=== PATIENT | male | born 1955 | race Caucasian/White ===

== ENCOUNTER 2017-05-25 11:04 | Outpatient (CLI) | payer OTHER ==
[2017-05-25 11:29] LABS: Hemoglobin 12.2 g/dL (14.0-18.0); Mean Corpuscular HGB CONC 33.8 g/dL (32.0-36.0); Mean Corpuscular Hemoglobin 30.6 pg (27.0-31.0); Mean Corpuscular Volume 90.6 fl (80.0-94.0); Mean Platelet Volume 4.7 fL (7.4-10.4); Platelet Count 444 thou/uL (130-400); RBC Distribution Width 13.9 % (11.5-14.5); Red Blood Cell (RBC) Count 3.97 mill/uL (4.70-6.10); White Blood Cell (WBC) Count 15.6 thou/uL (4.8-10.8)
[2017-05-25 17:08] LABS: Iron Binding Capacity, Total 255 mcg/dL (261-462)
[2017-05-25 17:09] LABS: Iron 58 ug/dL (65-175)
== END 2017-05-25 11:05 | disposition home or self-care (01) ==
LOC: MADLAB 11:04
DX: D50.9 Iron deficiency anemia, unspecified (principal)
CPT/HCPCS: 36415; 82728; 83540; 83550; 85027

== ENCOUNTER 2020-03-28 22:49 | Emergency (ER) | payer OTHER ==
[~2020-03-28 22:49] MED LIST: Iopamidol 370 76% 125 ML VIAL FS ONE; Sodium Chloride 0.9% 100 ML BAG ONE
[2020-03-28] MEDS ORDERED: Ondansetron PF 4 MG/2 ML Vial ONE (23:25)
[2020-03-28] MEDS ORDERED: Sodium Chloride 0.9% 1,000 ML ONE (23:25)
[2020-03-28] MEDS ORDERED: Morphine 4 MG/ML VIAL ONE (23:25)
[2020-03-28 23:28] LABS: #Basophils 0.1 thou/uL (0.0-0.2); #Eosinphils 0.8 thou/uL (0.0-0.7); #Lymphocytes 2.5 thou/uL (1.20-3.40); #Monocytes 1.6 thou/uL (0.11-0.59); #Neutrophils 14.8 thou/uL (1.40-6.50); %Basophils 0.6 % (0.0-1.0); %Eosinophils 4.1 % (0.0-10.0); %Lymphocytes 12.5 % (21.0-51.0); %Monocytes 7.9 % (0.0-10.0); Hemoglobin 14.6 g/dL (14.0-18.0); Mean Corpuscular HGB CONC 32.3 g/dL (32.0-36.0); Mean Corpuscular Hemoglobin 28.8 pg (27.0-31.0); Mean Platelet Volume 5.6 fL (7.4-10.4); Platelet Count 486 thou/uL (130-400); RBC Distribution Width 11.5 % (11.5-14.5); Red Blood Cell (RBC) Count 5.07 mill/uL (4.70-6.10); White Blood Cell (WBC) Count 19.7 thou/uL (4.8-10.8)
[2020-03-28 23:42] LABS: ALT (SGPT) 26 U/L (8-55); AST (SGOT) 21 U/L (5-34); Albumin 4.3 g/dL (3.4-4.8); Alkaline Phosphatase 90 U/L (40-110); Anion Gap 19 mmol/L (10-20); BUN (Urea Nitrogen) 23 mg/dL (8.4-25.7); Bilirubin, Total 0.3 mg/dL (0.2-1.2); CK (CPK) 54 U/L (30-200); Calc. Creatinine Clearance 0 mL/min (70-130); Carbon Dioxide 21 mmol/L (23-31); Chloride 99 mmol/L (98-107); Estimated GFR-MDRD 51; Globulin 4.8 g/dL (2.4-3.5); Glucose 163 mg/dL (80-115); Lipase 68 U/L (8-78); Potassium 3.4 mmol/L (3.5-5.1); Protein, Total 9.1 g/dL (5.8-8.1); Sodium 136 mmol/L (136-145)
[2020-03-29] MEDS ORDERED: Cefepime 2 GM VIAL ONE (00:17)
[2020-03-29] MEDS ORDERED: Sodium Chloride 0.9% 100 ML ONE (00:17)
[2020-03-29] MEDS ORDERED: Morphine 4 MG/ML VIAL ONE ×2 (00:30→02:09)
[2020-03-29] MEDS ORDERED: Vancomycin 1.5 GRAM/300 ML BAG 1.5 GM/300 ML BAG ONE (01:34)
[2020-03-29 02:45] LABS: Lactic Acid 1.7 mmol/L (0.5-2.2)
--- NOTE | 2020-03-29 09:30 | CT ---
PRELIMINARY REPORT/[facility]/EMERGENCY AFTER HOURS PROCEDURE Receipt of this report by the clinical staff was confirmed with Nakia Huynh RN by Ale Foster on March 29, 2020 00:41:00 CDT. Addendum electronically signed by Cecilia Foster on March 29, 2020 12:42:18 AM CDT CTA CHEST, ABDOMEN WITH CONTRAST History: ACUTE MID BACK/MID ABDOMEN PAIN. CONTRAST LEAKED Comparison: None Findings: Contrast bolus enters from the left with superior collateral vessels noted. Minimal contra st in the subclavian and axillary vein. Correlate for soft tissue contrast extravasation at injectio n site. Evaluation for pulmonary embolism is limited secondary to suboptimal pulmonary arterial bolus timing and respiratory motion artifact. No definite central pulmonary embolism is identified. Cardiac size is mildly enlarged. No pericardial effusion. Thoracic aorta is normal in caliber. Atherosclerotic c hanges of the aorta and coronary arteries. No acute aortic abnormality identified. Large vessel ladonna gins are unremarkable. Mild wall prominence of the esophagus. Correlate for esophagitis. No evidence of lymphadenopathy in the chest. Low lung volumes. Dependent atelectasis in the lower lo bes and lung bases as well as lingula. Few scattered groundglass opacities are seen in the right low er lobe which may reflect atelectasis. Infiltrate not excluded. No pleural effusion or pneumothorax identified. Abdominal aorta is normal in caliber. Atherosclerotic changes are present throughout. No acute vascular abnormality in the abdomen or pelvis. The celiac, SMA, NEHA, and renal veins are well -opacified. Visualized portions of the iliac vessels are unremarkable. Circumaortic left renal vein. Gallbladder is distended. Gallstones are seen at the base of the gallbladder and there is pericholec ystic fat stranding. Findings are concerning for acute cholecystitis. Consider ultrasound. No bilia ry ductal dilatation. There is mild hepatic steatosis. The spleen, pancreas and adrenal glands are unremarkable. Tiny subcentimeter hypodensities in the kidneys are too small to characterize. No hydr onephrosis bilaterally. Mild hazy appearance of the central mesentery with scattered subcentimeter me senteric lymph nodes. There is fluid in the distal small bowel which is nonspecific. The appendix is normal in caliber and noninflammatory. Diverticulosis. No evidence of acute diverticulitis. There i s wall thickening of the sigmoid colon in the left lower quadrant. Visualized portions of the upper pelvis. Mild wall thickening of the descending colon. Correlate for colitis. Osteopenia with degenerative changes throughout. There is trace anterolisthesis of L4 on L5, without pars defects. No acute osseous abnormality of the chest, abdomen, or visualized portions of the pel vis. Impression: 1. Evaluation for pulmonary embolism is limited secondary to suboptimal pulmonary arterial bolus chrissy ing and respiratory motion artifact. No definite central pulmonary embolism is identified. Left ent ering contrast bolus with limited enhancement of the subclavian and axillary veins. Collateral vesse l filling is noted. Correlate with physical findings for contrast extravasation at the injection sit e. 2. No acute aortic abnormality or vascular abnormality identified in the chest, abdomen, or visualiz ed portions of the pelvis. Mild atherosclerotic changes are present. 3. Dependent changes in the lungs with low lung volumes. Groundglass opacities in the right lower l obe may reflect atelectasis, however early infiltrates are not excluded. 4. Mild wall thickening of the esophagus. Correlate for esophagitis. 5. All thickening of the descending and sigmoid colon concerning for colitis. No evidence of bowel obstruction, acute appendicitis or acute diverticulitis. Nonspecific hazy appearance of the central mesentery. 6. Cholelithiasis with distended gallbladder. Mild pericholecystic fat stranding. Acute cholecysti tis is suspected. Consider ultrasound as clinically warranted for further characterization. 7. Additional findings, as above. Followup per final report recommendations. ELECTRONICALLY SIGNED BY: David Turner DO March 29, 2020 12:40:25 AM CDT FINAL REPORT CTA CHEST WITH IV CONTRAST AND 3D POSTPROCESSING CT ABDOMEN WITH IV CONTRAST AND 3D POSTPROCESSING: I agree with the preliminary report given by Dr. David Turner of [facility]. POS: VIK
== END 2020-03-29 02:15 | disposition short-term general hospital (02) ==
LOC: MADERS 22:49
DX: K80.20 Calculus of gallbladder without cholecystitis without obstruction (principal); I10 Essential (primary) hypertension; Z79.899 Other long term (current) drug therapy
CPT/HCPCS: 71275; 72191; 74175; 80053; 82550; 83605; 83690; 84484; 85025; 93005; 96361; 96365; 96367; 96375; 96376; J0692; J2270; J2405; J3370; J3490; J7050; Q9967

== ENCOUNTER 2021-09-10 12:05 | Outpatient (CLI) | payer BC ==
[2021-09-10 13:00] LABS: ALT (SGPT) 9 U/L (8-55); AST (SGOT) 12 U/L (5-34); Albumin 2.7 g/dL (3.4-4.8); Alkaline Phosphatase 62 U/L (40-110); Anion Gap 12 mmol/L (10-20); BUN (Urea Nitrogen) 18 mg/dL (8.4-25.7); Bilirubin, Total Less than 0.2 mg/dL (0.2-1.2); CRP (Inflammatory) 4.26 mg/dL (= or < 0.5); Calc. Creatinine Clearance 0 mL/min (70-130); Calcium 8.5 mg/dL (7.8-10.44); Carbon Dioxide 24 mmol/L (23-31); Chloride 105 mmol/L (98-107); Globulin 4.7 g/dL (2.4-3.5); Glucose 161 mg/dL (80-115); Potassium 4.2 mmol/L (3.5-5.1); Protein, Total 7.4 g/dL (5.8-8.1); Sodium 137 mmol/L (136-145)
[2021-09-10 13:03] LABS: #Basophils 0.1 thou/uL (0.0-0.2); #Eosinphils 0.8 thou/uL (0.0-0.7); #Lymphocytes 2.5 thou/uL (1.20-3.40); #Monocytes 1.6 thou/uL (0.11-0.59); #Neutrophils 5.9 thou/uL (1.40-6.50); %Basophils 0.8 % (0.0-1.0); %Eosinophils 7.5 % (0.0-10.0); %Lymphocytes 22.7 % (21.0-51.0); %Monocytes 14.6 % (0.0-10.0); %Neutrophils 54.4 % (42.0-75.0); Hemoglobin 8.7 g/dL (14.0-18.0); Mean Corpuscular HGB CONC 30.8 g/dL (32.0-36.0); Mean Corpuscular Hemoglobin 28.6 pg (27.0-31.0); Mean Corpuscular Volume 92.8 fL (78.0-98.0); Mean Platelet Volume 3.9 fL (7.4-10.4); Platelet Count 745 thou/uL (130-400); RBC Distribution Width 19.6 % (11.5-14.5); Red Blood Cell (RBC) Count 3.03 mill/uL (4.70-6.10); White Blood Cell (WBC) Count 10.8 thou/uL (4.8-10.8)
[2021-09-10 13:04] LABS: Anisocytosis SLIGHT = 6-15 cells (100X) (0-5/hpf); Platelet Morphology Comment Appears Increased
== END 2021-09-10 12:06 | disposition home or self-care (01) ==
LOC: MADLAB 12:05
PROVIDERS: ATTEND Physician Assistant Medical
DX: K51.90 Ulcerative colitis, unspecified, without complications (principal); D50.9 Iron deficiency anemia, unspecified
CPT/HCPCS: 36415; 80053; 85025; 86140

== ENCOUNTER 2021-11-06 13:12 | Emergency (ER) | payer BC ==
[2021-11-06] MEDS ORDERED: Iopamidol 370 76% 100 ML VIAL IV ONE (13:13)
[2021-11-06 15:27] LABS: #Basophils 0.1 thou/uL (0.0-0.2); #Eosinphils 1.3 thou/uL (0.0-0.7); #Lymphocytes 2.2 thou/uL (1.20-3.40); #Monocytes 1.5 thou/uL (0.11-0.59); #Neutrophils 8.6 thou/uL (1.40-6.50); %Basophils 0.6 % (0.0-1.0); %Eosinophils 9.4 % (0.0-10.0); Mean Corpuscular HGB CONC 30.8 g/dL (32.0-36.0); Mean Corpuscular Hemoglobin 29.3 pg (27.0-31.0); Mean Corpuscular Volume 95.2 fL (78.0-98.0); Mean Platelet Volume 3.7 fL (7.4-10.4); Platelet Count 522 thou/uL (130-400); RBC Distribution Width 14.2 % (11.5-14.5); Red Blood Cell (RBC) Count 2.74 mill/uL (4.70-6.10); White Blood Cell (WBC) Count 13.6 thou/uL (4.8-10.8)
[2021-11-06] MEDS ORDERED: Ondansetron PF 4 MG/2 ML Vial ONE (15:34)
[2021-11-06] MEDS ORDERED: Sodium Chloride 0.9% 500 ML ONE (15:34)
[2021-11-06] MEDS ORDERED: Morphine 4 MG/ML VIAL ONE (15:34)
[2021-11-06 15:38] LABS: ALT (SGPT) 8 U/L (8-55); AST (SGOT) 8 U/L (5-34); Albumin 2.7 g/dL (3.4-4.8); Alkaline Phosphatase 50 U/L (40-110); Anion Gap 9 mmol/L (10-20); BUN (Urea Nitrogen) 20 mg/dL (8.4-25.7); Bilirubin, Total Less than 0.2 mg/dL (0.2-1.2); CRP (Inflammatory) 2.83 mg/dL (= or < 0.5); Calc. Creatinine Clearance 0 mL/min (70-130); Calcium 8.8 mg/dL (7.8-10.44); Carbon Dioxide 23 mmol/L (23-31); Chloride 108 mmol/L (98-107); Globulin 4.6 g/dL (2.4-3.5); Glucose 101 mg/dL (80-115); Lipase 64 U/L (8-78); Protein, Total 7.3 g/dL (5.8-8.1); Sodium 136 mmol/L (136-145)
[2021-11-06] MEDS ORDERED: metroNIDAZOLE 250 MG TAB ONE (17:51)
[2021-11-06] MEDS ORDERED: methylPREDNISolone Sod Succ/PF 125 MG/2 ML VIAL ONE (17:51)
[2021-11-06] MEDS ORDERED: Ciprofloxacin 500 MG TAB ONE (17:51)
== END 2021-11-06 18:30 | disposition home or self-care (01) ==
LOC: MADERS 13:12
DX: N13.0 Hydronephrosis with ureteropelvic junction obstruction (principal); D50.9 Iron deficiency anemia, unspecified; B35.4 Tinea corporis; K51.90 Ulcerative colitis, unspecified, without complications; I10 Essential (primary) hypertension
CPT/HCPCS: 36415; 74177; 80053; 82550; 83690; 85025; 86140; 96374; 96375; J2270; J2405; J2930; J7030; Q9967

== ENCOUNTER 2022-07-04 08:41 | Emergency (ER) | payer BC ==
[2022-07-04] MEDS ORDERED: predniSONE 20 MG TAB ONE (09:38)
== END 2022-07-04 10:18 | disposition home or self-care (01) ==
LOC: MADERS 08:41
DX: J20.9 Acute bronchitis, unspecified (principal); I10 Essential (primary) hypertension; Z87.442 Personal history of urinary calculi
CPT/HCPCS: 71046; J7512; J7620

== ENCOUNTER 2022-08-24 00:19 | Emergency (ER) | payer BC ==
[2022-08-24] MEDS ORDERED: methylPREDNISolone Sod Succ/PF 125 MG/2 ML VIAL ONE (00:53)
[2022-08-24 01:41] LABS: Hemoglobin 9.9 g/dL (14.0-18.0); Mean Corpuscular HGB CONC 31.4 g/dL (32.0-36.0); Mean Corpuscular Hemoglobin 27.5 pg (27.0-31.0); Mean Corpuscular Volume 87.4 fL (78.0-98.0); Mean Platelet Volume 4.5 fL (7.4-10.4); Platelet Count 648 thou/uL (130-400); White Blood Cell (WBC) Count 12.6 thou/uL (4.8-10.8)
[2022-08-24 01:42] LABS: Band 5 % (5-11); Eosinophils 31 % (0-10); Lymphocytes 9 % (21-51); MDiff Complete? YES; Neutrophil 55 % (42-75)
[2022-08-24 01:47] LABS: ALT (SGPT) 9 U/L (8-55); AST (SGOT) 13 U/L (5-34); Albumin 3.3 g/dL (3.4-4.8); Alkaline Phosphatase 88 U/L (40-110); Anion Gap 11 mmol/L (10-20); BUN (Urea Nitrogen) 20 mg/dL (8.4-25.7); Bilirubin, Total 0.2 mg/dL (0.2-1.2); Calc. Creatinine Clearance 0 mL/min (70-130); Calcium 8.9 mg/dL (7.8-10.44); Carbon Dioxide 22 mmol/L (23-31); Chloride 106 mmol/L (98-107); Estimated GFR 47; Glucose 121 mg/dL (80-115); Potassium 3.7 mmol/L (3.5-5.1); Protein, Total 8.3 g/dL (5.8-8.1); Sodium 135 mmol/L (136-145)
[2022-08-24] MEDS ORDERED: cefTRIAXone\\ROCEPHIN 1 GM VIAL ONE (02:33)
[2022-08-24] MEDS ORDERED: Azithromycin 500 MG VIAL ONE (02:33)
[2022-08-24] MEDS ORDERED: Sodium Chloride 0.9% 500 ML BAG ONE (07:43)
[2022-08-24] MEDS ORDERED: Sodium Chloride 0.9% 100 ML BAG ONE (07:43)
== END 2022-08-24 05:55 | disposition home or self-care (01) ==
LOC: MADERS 00:19
DX: J06.9 Acute upper respiratory infection, unspecified (principal); R06.03 Acute respiratory distress; R06.2 Wheezing; Z20.822 Contact with and (suspected) exposure to COVID-19
CPT/HCPCS: 71045; 80053; 83605; 83735; 83880; 85025; 87804; 93005; 96365; 96367; 96375; J0456; J0696; J2930; J3490; J7030; J7050; J7620; U0003; U0005

== ENCOUNTER 2023-02-22 18:13 | Emergency (ER) | payer BC ==
[2023-02-22] MEDS ORDERED: Lidocaine 1% PF 5 ML VIAL ONE (18:52)
[2023-02-22] MEDS ORDERED: Lidocaine 1% w/Epinephrine 1:100K 20 ML VIAL ONE (18:57)
== END 2023-02-22 20:03 | disposition home or self-care (01) ==
LOC: MADERS 18:13
DX: S01.512A Laceration without foreign body of oral cavity, initial encounter (principal); K21.9 Gastro-esophageal reflux disease without esophagitis; I10 Essential (primary) hypertension; J45.909 Unspecified asthma, uncomplicated; W50.3XXA Accidental bite by another person, initial encounter; Z79.899 Other long term (current) drug therapy
CPT/HCPCS: 64400

== ENCOUNTER 2024-11-24 12:26 | Emergency (ER) | payer BC ==
[2024-11-24 13:36] LABS: ALT (SGPT) 30 U/L (Less than 45); AST (SGOT) 23 U/L (11-34); Albumin 3.9 g/dL (3.1-4.5); Alkaline Phosphatase 91 U/L (40-110); Anion Gap 14 mmol/L (10-20); BUN (Urea Nitrogen) 67 mg/dL (8.4-25.7); Bilirubin, Total 0.3 mg/dL (0.3-1.2); Calc. Creatinine Clearance 0 mL/min (70-130); Calcium 8.6 mg/dL (7.8-10.44); Carbon Dioxide 11 mmol/L (23-31); Chloride 112 mmol/L (98-107); Estimated GFR 13; Globulin 4.7 g/dL (2.4-3.5); Glucose 119 mg/dL (80-115); Magnesium 1.9 mg/dL (1.6-2.6); Potassium 5.7 mmol/L (3.5-5.1); Protein, Total 8.6 g/dL (5.8-8.1); Sodium 131 mmol/L (136-145)
[2024-11-24 13:40] LABS: Hematocrit 42.8 % (42.0-52.0); Hemoglobin 13.4 g/dL (14.0-18.0); Mean Corpuscular Hemoglobin 29.9 pg (27.0-31.0); Mean Corpuscular Volume 97.7 fl (78.0-98.0); Red Blood Cell (RBC) Count 4.38 mill/uL (4.70-6.10)
[2024-11-24 13:41] LABS: MDiff Complete? YES; Manual Diff?? YES; Mean Corpuscular HGB CONC 30.8 g/dL (32.0-36.0); Mean Platelet Volume 5.9 fL (7.4-10.4); Platelet Count 319 10x3/uL (130-400); RBC Distribution Width 13.1 % (11.5-14.5)
[2024-11-24 13:42] LABS: Band 2 % (5-11); Eosinophils 2 % (0-10); Lymphocytes 18 % (21-51); Monocytes 3 % (0-10); Neutrophil 75 % (42-75)
[2024-11-24 13:43] LABS: Platelet Adequacy Comment Appears Adequate; RBC Morph Comment Within Normal Limits
[2024-11-24] MEDS ORDERED: Lactated Ringer's 1,000 ML ONE (14:39)
[2024-11-24 15:04] LABS: Bilirubin Negative (Negative); Blood, Urine Large (Negative); Glucose, Urine (Dipstick) Negative (Negative); Ketone, Urine Negative (Negative); Leukocyte Trace (Negative); Nitrite Negative (Negative); Protein, Urine (Dipstick) 100 mg/dL (Neg-Trace); Urobilinogen 0.2 mg/dL (Less than 2); pH, Urine 5.5 (5.0-9.0)
[2024-11-24 15:18] LABS: Bacteria/HPF Rare-Few HPF (None Seen); CAUTI Indications for Culture Dysuria,urgency,freq; Clarity Slightly Cloudy (Clear); RBC/HPF 21-50 HPF (0-3); WBC/HPF 21-50 HPF (0-3)
[2024-11-24 15:19] LABS: Urine Culture Reflex Yes Yes
[2024-11-24 16:51] LABS: Anion Gap 12 mmol/L (10-20); BUN (Urea Nitrogen) 64 mg/dL (8.4-25.7); Calc. Creatinine Clearance 0 mL/min (70-130); Calcium 8.2 mg/dL (7.8-10.44); Carbon Dioxide 12 mmol/L (23-31); Chloride 114 mmol/L (98-107); Estimated GFR 15; Glucose 107 mg/dL (80-115); Potassium 5.2 mmol/L (3.5-5.1); Sodium 133 mmol/L (136-145)
== END 2024-11-24 16:38 | disposition short-term general hospital (02) ==
LOC: MADERS 12:26
DX: N17.9 Acute kidney failure, unspecified (principal); E87.6 Hypokalemia; I10 Essential (primary) hypertension
CPT/HCPCS: 36415; 80053; 81001; 82550; 83735; 85025; 87086; 93005; 94760; 96360; 96361; J7120

== ENCOUNTER 2025-06-12 09:04 | Outpatient (CLI) | payer BC, MEDICARE ==
[2025-06-12 09:35] LABS: Hematocrit 35.2 % (42.0-52.0); Hemoglobin 11.4 g/dL (14.0-18.0); Mean Corpuscular Hemoglobin 29.8 pg (27.0-31.0); Mean Corpuscular Volume 91.8 fl (78.0-98.0); Platelet Count 361 10x3/uL (130-400); Red Blood Cell (RBC) Count 3.84 mill/uL (4.70-6.10); White Blood Cell (WBC) Count 15.6 10x3/uL (4.8-10.8)
[2025-06-12 09:44] LABS: Albumin 3.6 g/dL (3.1-4.5); Anion Gap 11 mmol/L (10-20); BUN (Urea Nitrogen) 36 mg/dL (8.4-25.7); BUN/Creatinine Ratio 17.48; Calc. Creatinine Clearance 0 mL/min (70-130); Calcium 9.1 mg/dL (7.8-10.44); Carbon Dioxide 18 mmol/L (23-31); Chloride 112 mmol/L (98-107); Glucose 104 mg/dL (80-115); Potassium 4.1 mmol/L (3.5-5.1); Sodium 137 mmol/L (136-145)
[2025-06-12 11:28] LABS: Glucose, Urine (Dipstick) Negative (Negative); Leukocyte Trace (Negative); Protein, Urine (Dipstick) 30 mg/dL (Neg-Trace); Specific Gravity, Urine 1.015 (1.005-1.030)
[2025-06-12 19:17] LABS: Protein, Urine Random Quant 35.0 mg/dL (1-14)
== END 2025-06-12 09:05 | disposition home or self-care (01) ==
LOC: MADLAB 09:04
PROVIDERS: ATTEND Internal Medicine Nephrology
DX: N18.9 Chronic kidney disease, unspecified (principal); D63.1 Anemia in chronic kidney disease; I73.9 Peripheral vascular disease, unspecified; M19.90 Unspecified osteoarthritis, unspecified site; K21.9 Gastro-esophageal reflux disease without esophagitis; C18.9 Malignant neoplasm of colon, unspecified; N40.0 Benign prostatic hyperplasia without lower urinary tract symptoms; N20.0 Calculus of kidney; R80.9 Proteinuria, unspecified
CPT/HCPCS: 36415; 80069; 81003; 82570; 84156; 85027

== ENCOUNTER 2025-07-24 13:25 | Emergency (ER) | payer BC, MEDICARE ==
[2025-07-24 14:11] LABS: #Basophils 0.2 thou/uL (0.0-0.2); #Eosinophils 1.5 thou/uL (0.0-0.7); #Lymphocytes 0.9 thou/uL (1.20-3.40); #Monocytes 1.0 thou/uL (0.11-0.59); #Neutrophils 8.8 thou/uL (1.40-6.50); %Basophils 1.5 % (0.0-1.0); %Eosinophils 12.3 % (0.0-10.0); %Lymphocytes 7.5 % (21.0-51.0); %Monocytes 7.9 % (0.0-10.0); %Neutrophils 70.8 % (42.0-75.0); Hematocrit 37.1 % (42.0-52.0); Hemoglobin 11.6 g/dL (14.0-18.0); Mean Corpuscular Hemoglobin 28.9 pg (27.0-31.0); Mean Corpuscular Volume 92.3 fl (78.0-98.0); Platelet Count 350 10x3/uL (130-400); Red Blood Cell (RBC) Count 4.02 mill/uL (4.70-6.10); White Blood Cell (WBC) Count 12.4 10x3/uL (4.8-10.8)
[2025-07-24 14:28] LABS: ALT (SGPT) 9 U/L (Less than 45); AST (SGOT) 17 U/L (11-34); Albumin 3.7 g/dL (3.1-4.5); Alkaline Phosphatase 76 U/L (40-110); Anion Gap 15 mmol/L (10-20); BUN (Urea Nitrogen) 20 mg/dL (8.4-25.7); Bilirubin, Total 0.3 mg/dL (0.3-1.2); CK (CPK) 59 U/L (30-200); Calc. Creatinine Clearance 0 mL/min (70-130); Calcium 9.3 mg/dL (7.8-10.44); Carbon Dioxide 20 mmol/L (23-31); Chloride 108 mmol/L (98-107); Globulin 4.0 g/dL (2.4-3.5); Glucose 97 mg/dL (80-115); Potassium 3.9 mmol/L (3.5-5.1); Sodium 139 mmol/L (136-145)
[2025-07-24 15:48] LABS: Glucose, Urine (Dipstick) Negative (Negative); Leukocyte Trace (Negative); Protein, Urine (Dipstick) Trace mg/dL (Neg-Trace); Specific Gravity, Urine 1.010 (1.005-1.030)
[2025-07-24 15:56] LABS: CAUTI Indications for Culture Dysuria,urgency,freq; RBC/HPF 0-3 HPF (0-3)
[2025-07-24 15:57] LABS: Bacteria/HPF Rare-Few HPF (None Seen); Urine Culture Reflex No No
== END 2025-07-24 16:40 | disposition home or self-care (01) ==
LOC: MADERS 13:25
DX: R33.9 Retention of urine, unspecified (principal); J42 Unspecified chronic bronchitis; I12.9 Hypertensive chronic kidney disease with stage 1 through stage 4 chronic kidney disease, or unspecified chronic kidney disease; N18.9 Chronic kidney disease, unspecified; K21.9 Gastro-esophageal reflux disease without esophagitis; J30.2 Other seasonal allergic rhinitis; Z79.899 Other long term (current) drug therapy
CPT/HCPCS: 36415; 51702; 80053; 81001; 82550; 85025; 99284

== ENCOUNTER 2025-08-17 15:50 | Outpatient (CLI) | payer OTHER | END 2025-08-17 15:51 | disposition home or self-care (01) | LOC: MADRAD 15:50 | PROVIDERS: ATTEND Physician Assistant | DX: J18.9 Pneumonia, unspecified organism (principal) | CPT/HCPCS: 71046 ==

== ENCOUNTER 2025-09-01 09:03 | Emergency (ER) | payer MEDICARE ==
[2025-09-01 09:45] LABS: #Basophils 0.1 thou/uL (0.0-0.2); #Eosinophils 1.0 thou/uL (0.0-0.7); White Blood Cell (WBC) Count 12.1 10x3/uL (4.8-10.8)
[2025-09-01 09:59] LABS: #Lymphocytes 1.0 thou/uL (1.20-3.40); #Monocytes 0.7 thou/uL (0.11-0.59); #Neutrophils 9.3 thou/uL (1.40-6.50); %Basophils 0.7 % (0.0-1.0); %Eosinophils 8.3 % (0.0-10.0); %Lymphocytes 8.2 % (21.0-51.0); %Monocytes 5.8 % (0.0-10.0); %Neutrophils 77.1 % (42.0-75.0); Hematocrit 36.4 % (42.0-52.0); Hemoglobin 12.2 g/dL (14.0-18.0); Mean Corpuscular Hemoglobin 29.8 pg (27.0-31.0); Mean Corpuscular Volume 88.8 fl (78.0-98.0); Platelet Count 385 10x3/uL (130-400); Red Blood Cell (RBC) Count 4.09 mill/uL (4.70-6.10)
[2025-09-01 10:03] LABS: ALT (SGPT) 12 U/L (Less than 45); AST (SGOT) 17 U/L (11-34); Albumin 3.5 g/dL (3.1-4.5); Alkaline Phosphatase 70 U/L (40-110); Anion Gap 13 mmol/L (10-20); BUN (Urea Nitrogen) 25 mg/dL (8.4-25.7); Bilirubin, Total 0.4 mg/dL (0.3-1.2); Calc. Creatinine Clearance 0 mL/min (70-130); Calcium 8.8 mg/dL (7.8-10.44); Carbon Dioxide 18 mmol/L (23-31); Chloride 110 mmol/L (98-107); Globulin 3.8 g/dL (2.4-3.5); Glucose 101 mg/dL (80-115); Potassium 3.8 mmol/L (3.5-5.1)
[2025-09-01 10:22] LABS: Sodium 137 mmol/L (136-145)
== END 2025-09-01 10:22 | disposition home or self-care (01) ==
LOC: MADERS 09:03
DX: N40.1 Benign prostatic hyperplasia with lower urinary tract symptoms (principal); R33.8 Other retention of urine; J42 Unspecified chronic bronchitis; I12.9 Hypertensive chronic kidney disease with stage 1 through stage 4 chronic kidney disease, or unspecified chronic kidney disease; N18.9 Chronic kidney disease, unspecified
CPT/HCPCS: 51702; 51798; 80053; 85025; 99284

== ENCOUNTER 2025-09-19 08:45 | Outpatient (CLI) | payer MEDICARE ==
[2025-09-19 09:19] LABS: Albumin 3.8 g/dL (3.1-4.5); Anion Gap 13 mmol/L (10-20); BUN (Urea Nitrogen) 25 mg/dL (8.4-25.7); BUN/Creatinine Ratio 14.04; Calc. Creatinine Clearance 0 mL/min (70-130); Calcium 8.7 mg/dL (7.8-10.44); Carbon Dioxide 19 mmol/L (23-31); Chloride 109 mmol/L (98-107); Glucose 89 mg/dL (80-115); Potassium 4.2 mmol/L (3.5-5.1); Sodium 137 mmol/L (136-145)
[2025-09-19 09:21] LABS: Glucose, Urine (Dipstick) Negative (Negative); Leukocyte Negative (Negative); Protein, Urine (Dipstick) 100 mg/dL (Neg-Trace); Specific Gravity, Urine 1.020 (1.005-1.030)
[2025-09-19 13:11] LABS: Hematocrit 39.8 % (42.0-52.0); Hemoglobin 12.3 g/dL (14.0-18.0); Mean Corpuscular Hemoglobin 28.6 pg (27.0-31.0); Mean Corpuscular Volume 92.7 fl (78.0-98.0); Platelet Count 309 10x3/uL (130-400); Red Blood Cell (RBC) Count 4.29 mill/uL (4.70-6.10); White Blood Cell (WBC) Count 12.2 10x3/uL (4.8-10.8)
[2025-09-19 16:51] LABS: Protein, Urine Random Quant 46.0 mg/dL (1-14)
== END 2025-09-19 08:46 | disposition home or self-care (01) ==
LOC: MADLAB 08:45
PROVIDERS: ATTEND Internal Medicine Nephrology
DX: C18.9 Malignant neoplasm of colon, unspecified (principal); N18.9 Chronic kidney disease, unspecified; D63.1 Anemia in chronic kidney disease; N20.0 Calculus of kidney; K21.9 Gastro-esophageal reflux disease without esophagitis; N40.0 Benign prostatic hyperplasia without lower urinary tract symptoms; I73.9 Peripheral vascular disease, unspecified; R80.9 Proteinuria, unspecified; M19.90 Unspecified osteoarthritis, unspecified site
CPT/HCPCS: 36415; 80069; 81003; 82570; 84156; 85027